=== PATIENT | female | born 1985 | race Caucasian/White ===

== ENCOUNTER → 2023-05-11 09:36 | Outpatient (REF) | payer OTHER, SELFPAY | LOC: HWRAD 09:36 | PROVIDERS: ATTENDING PHYSICIAN Family Medicine | DX: J18.9 Pneumonia, unspecified organism (principal) | CPT/HCPCS: 71046 ==

== ENCOUNTER → 2023-07-27 09:36 | Outpatient (REF) | payer OTHER, SELFPAY | LOC: HWRAD 09:36 | PROVIDERS: ATTENDING PHYSICIAN Nurse Practitioner Adult Health; FAMILY PHYSICIAN Family Medicine | DX: M54.50 Low back pain, unspecified (principal) | CPT/HCPCS: 72100 ==

== ENCOUNTER → 2024-02-18 17:36 | Outpatient (REF) | payer OTHER, SELFPAY | LOC: MRI 17:36 | PROVIDERS: ATTENDING PHYSICIAN Family Medicine | DX: H53.8 Other visual disturbances (principal); R42 Dizziness and giddiness; R51.9 Headache, unspecified | CPT/HCPCS: 70553; A9575 ==

== ENCOUNTER 2024-05-06 06:21 | Day surgery (SDC) | payer OTHER, SELFPAY | END 2024-05-06 15:35 | disposition home or self-care (01) | LOC: GI 06:21 | PROVIDERS: ATTENDING PHYSICIAN Internal Medicine Gastroenterology | DX: R10.84 Generalized abdominal pain (principal); K64.0 First degree hemorrhoids | CPT/HCPCS: 45378 ==

== ENCOUNTER → 2024-09-29 16:06 | Outpatient (REF) | payer OTHER, SELFPAY | LOC: RAD 16:06 | PROVIDERS: ATTENDING PHYSICIAN Internal Medicine Gastroenterology; FAMILY PHYSICIAN Family Medicine | DX: R10.2 Pelvic and perineal pain (principal) | CPT/HCPCS: 74177; Q9967 ==

== ENCOUNTER → 2024-10-10 08:13 | Outpatient (REF) | payer OTHER, SELFPAY | LOC: HWRAD 08:13 | PROVIDERS: ATTENDING PHYSICIAN Obstetrics & Gynecology; FAMILY PHYSICIAN Family Medicine; REFERRING PHYSICIAN Student in an Organized Health Care Education/Training Program | DX: R10.2 Pelvic and perineal pain (principal) | CPT/HCPCS: 76830; 76856 ==

== ENCOUNTER → 2024-11-24 08:03 | Outpatient (REF) | payer OTHER, SELFPAY | LOC: HWRAD 08:03 | PROVIDERS: ATTENDING PHYSICIAN Student in an Organized Health Care Education/Training Program; FAMILY PHYSICIAN Family Medicine | DX: C50.511 Malignant neoplasm of lower-outer quadrant of right female breast (principal); Z17.1 Estrogen receptor negative status [ER-]; R16.0 Hepatomegaly, not elsewhere classified | CPT/HCPCS: 76700 ==